=== PATIENT | male | born 1930 | race Caucasian/White ===

== ENCOUNTER 2018-10-01 07:44 | Emergency (ER) | payer OTHER, MEDICARE ==
[~2018-10-01] VITALS: Ht 160 cm; Wt 61.2 kg
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
[2018-10-01 10:37] VITALS: BP 149/101
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
== END 2018-10-01 11:05 | disposition home or self-care (01) ==
LOC: ER 07:49
DX: S20.212A Contusion of left front wall of thorax, initial encounter (principal); I48.91 Unspecified atrial fibrillation; R40.2142 Coma scale, eyes open, spontaneous, at arrival to emergency department; R40.2252 Coma scale, best verbal response, oriented, at arrival to emergency department; R40.2362 Coma scale, best motor response, obeys commands, at arrival to emergency department; Z79.01 Long term (current) use of anticoagulants; Z77.22 Contact with and (suspected) exposure to environmental tobacco smoke (acute) (chronic); Z90.89 Acquired absence of other organs; Z95.0 Presence of cardiac pacemaker; V43.53XA Car driver injured in collision with pick-up truck in traffic accident, initial encounter
CPT/HCPCS: 70450; 71046; 93005